=== PATIENT | female | born 1995 | race Caucasian/White ===

== ENCOUNTER 2023-02-21 22:27 | Inpatient (IN) | payer SELFPAY ==
[2023-02-21] MEDS ORDERED: Sodium Chloride 0.9% 1,000 ML IV ONE (22:54)
[2023-02-21] MEDS ORDERED: LORazepam 2 MG/ML SDV IVPUSH ONE (22:55)
[2023-02-21 23:08] LABS: BASOPHILS ABSOLUTE AUTO 0.02 10^3/uL (0.00-0.50); BASOPHILS PERCENT AUTO 0.3 % (0-1); EOSINOPHILS ABSOLUTE AUTO 0.04 10^3/uL (0.00-1.50); EOSINOPHILS PERCENT AUTO 0.6 % (0-6); HEMATOCRIT 28.8 % (37.0-47.0); HEMOGLOBIN 9.4 g/dL (12.0-16.0); IMMATURE GRAN ABSOLUTE AUTO 0.01 10^3/uL (0.00-0.49); IMMATURE GRAN PERCENT AUTO 0.1 % (0.0-4.9); LYMPHOCYTES ABSOLUTE AUTO 0.66 10^3/uL (0.60-5.00); LYMPHOCYTES PERCENT AUTO 9.2 % (24-44); MEAN CORPUSCULAR HEMOGLOBIN 32.6 pg (27.0-32.0); MEAN CORPUSCULAR HGB CONC 32.6 g/dL (32.0-36.0); NEUTROPHILS ABSOLUTE AUTO 5.43 x10^3/uL (1.80-8.00); NEUTROPHILS PERCENT AUTO 75.8 % (41-71); RED BLOOD CELL COUNT 2.88 x10^6/uL (4.00-5.50); WHITE BLOOD CELL COUNT,WBC 7.2 10^3/uL (4.0-11.0)
[2023-02-21 23:12] LABS: APPEARANCE,URINE SLIGHTLY CLOUDY (CLEAR); COLOR,URINE AMBER (YELLOW); GLUCOSE,URINE NEGATIVE (NEGATIVE); KETONES,URINE NEGATIVE (NEGATIVE); LEUKOCYTE ESTERASE,URINE SMALL (NEGATIVE); NITRITE,URINE NEGATIVE (NEGATIVE); OCCULT BLOOD,URINE NEGATIVE (NEGATIVE); PROTEIN,URINE NEGATIVE (NEGATIVE)
[2023-02-21 23:14] LABS: PLATELET COUNT,PLT 45 10^3/uL (150-400)
[2023-02-21 23:15] LABS: BILIRUBIN,URINE LARGE (NEGATIVE)
[2023-02-21 23:19] LABS: BACTERIA,URINE FEW /HPF (NOT SEEN); RBC,URINE NOT SEEN /HPF (0-5); SQUAMOUS EPITHELIAL CELLS,UR FEW /HPF (NOT SEEN); WBC,URINE 0-5 /HPF (0-5)
[2023-02-21 23:28] LABS: ALANINE AMINOTRANSFERASE,ALT 29 U/L (12-78); ALBUMIN 2.5 g/dL (3.4-5.0); ALKALINE PHOSPHATASE 241 U/L (46-116); ASPARTATE AMNIOTRANSFERASE,AST 151 U/L (15-37); CALCIUM 7.8 mg/dL (8.4-10.1); CARBON DIOXIDE,CO2 24 mmol/L (21-32); CHLORIDE,CL 95 mEq/L (98-106); CREATININE 0.7 mg/dL (0.6-1.0); GLUCOSE RANDOM 94 mg/dL (75-99); LIPASE 59 U/L (16-77); MAGNESIUM 1.2 mg/dL (1.8-2.4); POTASSIUM,K 3.4 mEq/L (3.5-5.0); SODIUM,NA 131 mEq/L (136-145)
[2023-02-21 23:34] LABS: BLOOD UREA NITROGEN,BUN 2 mg/dL (7-18); ESTIMATED GFR 121 mL/min (>=60)
[2023-02-21 23:45] LABS: INR 2.42 (0.92-1.18); PROTHROMBIN TIME 24.3 SEC (9.3-11.3)
[2023-02-22] MEDS ORDERED: Magnesium Sulfate/Water 2 GM in Premix Bag 1 BAG IV ONE (00:43)
[2023-02-22] MEDS ORDERED: NS + KCl 20mEq/L 1,000 ML IV SCH (00:43)
[2023-02-22] MEDS ORDERED: Ondansetron 4 MG/2 ML SDV IV PRN (00:43)
[2023-02-22] MEDS ORDERED: LORazepam 0.5 MG Tab PO PRN (00:43)
[2023-02-22] MEDS ORDERED: Haloperidol Lactate 5 MG/ML SDV IM PRN (00:43)
[2023-02-22] MEDS: Lactulose Soln 10 GM/15 ML 30 ML UD Cup PO SCH ×3 (01:05→12:50)
[2023-02-22] MEDS: Folic Acid 1 MG, Multivitamins 1 TAB, Thiamine 100 MG, Magnesium Oxide 500 MG PO SCH ×8 (01:10→12:49)
[2023-02-22] MEDS: LORazepam 2 MG/ML SDV IVPUSH PRN ×2 (01:44→04:25)
[2023-02-22] MEDS ORDERED: diphenhydrAMINE 50 MG/ML SDV IVPUSH ONE (04:58)
[2023-02-22] MEDS ORDERED: Succinylcholine 200 MG/10 ML MDV ONE (06:11)
[2023-02-22] MEDS: Thiamine 500 MG in Sodium Chloride 0.9% 100 ML IV SCH ×2 (06:11→12:49)
[2023-02-22] MEDS ORDERED: Succinylcholine 200 MG/10 ML MDV IV ONE (06:40)
[2023-02-22] MEDS ORDERED: Etomidate 2 MG/ML 10 ML SDV IVPUSH ONE ×2 (06:40→09:14)
[2023-02-22] MEDS ORDERED: Norepinephrine Bit/D5W Premix 250 ML ONE (06:49)
[2023-02-22] MEDS ORDERED: propofoL 100 ML ONE (06:49)
[2023-02-22] MEDS ORDERED: propofoL 100 ML IV SCH (06:53)
[2023-02-22] MEDS ORDERED: Propofol 200 MG/20 ML SDV IVPUSH ONE ×3 (07:03→09:14)
[2023-02-22] MEDS ORDERED: cefTRIAXone 2 GM Vial IVPUSH ONE (07:14)
[2023-02-22] MEDS ORDERED: Midazolam 1 MG/ML 2 ML SDV ONE (07:23)
[2023-02-22] MEDS ORDERED: Midazolam 50 MG in Sodium Chloride 0.9% 100 ML IV SCH (07:30)
[2023-02-22] MEDS ORDERED: Midazolam 1 MG/ML 2 ML SDV IVPUSH ONE (07:39)
[2023-02-22] MEDS ORDERED: Sodium Chloride 0.9% 100 ML ONE (07:46)
[2023-02-22] MEDS ORDERED: fentaNYL 100 MCG/2 ML SDV ONE (07:46)
[2023-02-22] MEDS ORDERED: fentaNYL 50 MCG/ML SDV IVPUSH PRN (07:50)
[2023-02-22] MEDS ORDERED: Magnesium Oxide 400 MG Tab PO SCH (08:00)
[2023-02-22 08:31] LABS: BASOPHILS ABSOLUTE AUTO 0.01 10^3/uL (0.00-0.50); BASOPHILS PERCENT AUTO 0.2 % (0-1); EOSINOPHILS ABSOLUTE AUTO 0.01 10^3/uL (0.00-1.50); EOSINOPHILS PERCENT AUTO 0.2 % (0-6); HEMATOCRIT 23.7 % (37.0-47.0); HEMOGLOBIN 7.7 g/dL (12.0-16.0); IMMATURE GRAN ABSOLUTE AUTO 0.02 10^3/uL (0.00-0.49); IMMATURE GRAN PERCENT AUTO 0.3 % (0.0-4.9); MEAN CORPUSCULAR HEMOGLOBIN 32.4 pg (27.0-32.0); MEAN CORPUSCULAR HGB CONC 32.5 g/dL (32.0-36.0); MEAN CORPUSCULAR VOLUME 99.6 fL (83.0-97.0); MONOCYTES ABSOLUTE AUTO 0.86 10^3/uL (0.00-1.50); MONOCYTES PERCENT AUTO 14.3 % (0-10); PLATELET COUNT,PLT 56 10^3/uL (150-400); RED BLOOD CELL COUNT 2.38 x10^6/uL (4.00-5.50)
[2023-02-22 08:37] LABS: INR 2.9 (0.92-1.18); PROTHROMBIN TIME 28.9 SEC (9.3-11.3)
[2023-02-22 08:51] LABS: BILIRUBIN TOTAL 9.9 mg/dL (0.0-1.0); CREATININE 0.6 mg/dL (0.6-1.0); EST CRCL DRUG DOSING (CG) 126.73 mL/min; MAGNESIUM 1.5 mg/dL (1.8-2.4); PROTEIN TOTAL,TP 5.7 g/dL (6.4-8.2)
[2023-02-22 08:54] LABS: POTASSIUM,K 2.3 mEq/L (3.5-5.0)
== END 2023-02-22 08:45 | DRG 442 ==
LOC: CC.ED 22:27 → CC.MS 02-22 00:12 → INTOOBSV 02-22 00:36 → CC.MS 02-22 00:36 → UNDOADMOB 02-22 00:36 → OBSVTOIN 02-22 00:36 → UNDODISIN 02-22 08:45
PROVIDERS: ADMIT Nurse Practitioner; ATTEND Nurse Practitioner
PROC: 0BH17EZ Insertion of Endotracheal Airway into Trachea, Via Natural or Artificial Opening (ICD-10-PCS; principal; 2023-02-22)
DX: K76.82 Hepatic encephalopathy (principal); F10.231 Alcohol dependence with withdrawal delirium; D69.59 Other secondary thrombocytopenia; Z96.649 Presence of unspecified artificial hip joint; E83.42 Hypomagnesemia; Z90.49 Acquired absence of other specified parts of digestive tract; Z98.890 Other specified postprocedural states
CPT/HCPCS: 36415; 71045; 80053; 81001; 83605; 83690; 83735; 84484; 85025; 85610; 87040; 87086; 93010; 96374; 99223; 99239; 99285-25; A9270-GY; J0330; J0696; J1200; J1630; J2060; J2250; J2704; J3010; J3360; J3411; J3475; J3480; J3490; J7030